=== PATIENT | female | born 1955 ===

== ENCOUNTER 2019-08-15 07:19 | Outpatient (CLI) | payer MEDICARE ==
--- NOTE | 2019-08-15 07:51 | ULT ---
Hepatic sonogram with duplex evaluation HISTORY: Liver disease. Portal venous hypertension. FINDINGS: The gallbladder is surgically absent. Common duct is upper limits of normal at 1.1 cm. Liver is diffusely echogenic without focal mass or intrahepatic biliary dilatation. No free fluid. Spleen is 9.2 cm in length without focal abnormality. Good color and spectral Doppler flow within the hepatic and splenic arteries. Portal venous flow is t owards the liver. Hepatic venous flow is towards the IVC. IMPRESSION : Status post cholecystectomy. Hepato-steatosis. No sonographic findings of portal venous hypertension.
== END 2019-08-15 07:20 | disposition home or self-care (01) ==
LOC: BICULT 07:19
PROVIDERS: ATTEND Physician Assistant Medical
DX: K76.6 Portal hypertension (principal); R14.0 Abdominal distension (gaseous); R74.8 Abnormal levels of other serum enzymes; R13.19 Other dysphagia; K92.1 Melena; K76.0 Fatty (change of) liver, not elsewhere classified; Z90.49 Acquired absence of other specified parts of digestive tract
CPT/HCPCS: 76705